=== PATIENT | male | born 1975 | race Caucasian/White ===

== ENCOUNTER 2016-04-11 09:34 | Emergency (ER) | payer BC ==
[~2016-04-11] VITALS: Ht 177.8 cm; Wt 67.0 kg
[~2016-04-11 09:34] MED LIST: CYCL-36 PO
[2016-04-11 09:37] VITALS: BP 110/80; PULSE 75; RESP 15; TEMP 97.9; O2SAT 100
[2016-04-11] MEDS ORDERED: CYCL1TAB29 PO (10:00)
--- NOTE | 2016-04-11 10:00 | PD ---
HPI Chief Complaint: Back/ Neck Pain or Injury Time Seen by Provider: 09:49 Travel History International Travel<30 days: No Contact w/Intl Traveler<30days: No Traveled to known affect area: No History of Present Illness HPI This 40-year-old male is complaining of right flank pain. Having the pain for a couple of days. He did some heavy lifting couple of days ago he was lifting a lot of sheet. Since then he's been having pain right flank area with certain movements. He does not have any dysuria. There is been no fever or chills. He gets a pinching when he moves in a certain way. He has had similar pain in the past. 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) Endocrine: No Gastrointestinal Disorders: No Genitourinary: No Immune Disorder: No Implanted Vascular Access Dvce: No Musculoskeletal: No Neurologic: Yes (severe head injury as a child) Psychiatric: No Reproductive: No Respiratory: No Immunizations Current: Yes Radiation Therapy: No Seizures: Yes (CURRENTLY NOT MEDICATED.) Past Surgical History AICD: No Pacemaker: No Other Surgery: Yes (HERNIA REPAIR CHILD) Social History Alcohol Use: Yes (occ) Tobacco Use: Yes (1/2 ppd) Substance Use: No Allergies-Medications (Allergen,Severity, Reaction): Coded Allergies: *MDRO Multi-Drug Resistant Organism (Verified Adverse Reaction, Unknown, ) MRSA PCR Screen positive 12/06/14. Reported Meds & Prescriptions Reported Meds & Active Scripts Active No Active Prescriptions or Reported Medications Review of Systems General / Constitutional: No: Fever, Chills Eyes: No: Diploplia HENT: No: Headaches Cardiovascular: No: Chest Pain or Discomfort, Palpitations Respiratory: No: Cough, Shortness of Breath Gastrointestinal: No: Vomiting, Diarrhea Genitourinary: Positive: Flank Pain Musculoskeletal: Positive: Pain Skin: No Rash, No Itching Physical Exam Narrative GENERAL: [-] SKIN: Warm and dry. HEAD: Atraumatic. Normocephalic. EYES: Pupils equal and round. No scleral icterus. No injection or drainage. ENT: No nasal bleeding or discharge. Mucous membranes pink and moist. NECK: Trachea midline. No JVD. MUSCULOSKELETAL: No obvious deformities. No clubbing. No cyanosis. No edema. Ears some tenderness of the lower back and also the right CVA area. He has pain with certain movements. Sensation is intact. He was good strength in plantar and dorsiflexion NEUROLOGICAL: Awake and alert. No obvious cranial nerve deficits. Motor grossly within normal limits. Normal speech. PSYCHIATRIC: Appropriate mood and affect; insight and judgment normal. Data Data Last Documented VS Vital Signs Date Time Temp Pulse Resp B/P Pulse Ox O2 Delivery O2 Flow Rate FiO2 04/11/16 09:37 97.9 75 15 110/80 100 MDM Medical Decision Making Medical Screen Exam Complete: Yes Emergency Medical Condition: Yes Medical Record Reviewed: Yes Differential Diagnosis Differential includes musculoskeletal pain, lumbar strain, Narrative Course This pain clearly appears to be musculoskeletal in origin as it is aggravated by certain movements. He was here in the past for similar pain and got some relief with Flexeril. I will prescribe Flexeril again Diagnosis Primary Impression: Muscle strain of right upper back Qualified Code: S29.012A - Muscle strain of right upper back, initial encounter Scripts Cyclobenzaprine (Flexeril)10 Mg Tab10 Mg PO TID #30 TAB Ref 0 Prov:Wyatt Goldberg MD 04/11/16 Disposition: 01 DISCHARGE HOME Condition: Stable Wyatt Goldberg MD Apr 11, 2016 10:00
== END 2016-04-11 10:06 | disposition home or self-care (01) ==
LOC: PHED 09:34
DX: S29.012A Strain of muscle and tendon of back wall of thorax, initial encounter (principal); X50.0XXA Overexertion from strenuous movement or load, initial encounter; Y93.89 Activity, other specified; Y92.89 Other specified places as the place of occurrence of the external cause; Y99.8 Other external cause status
CPT/HCPCS: 99283

== ENCOUNTER 2016-08-07 22:00 | Emergency (ER) | payer SELFPAY ==
[~2016-08-07] VITALS: Ht 170.2 cm; Wt 65.0 kg
[~2016-08-07 22:00] MED LIST changes: -CYCL-36 PO; +CYCL1TAB29 PO
[2016-08-07 22:05] VITALS: BP 117/80; PULSE 93; RESP 18; TEMP 97.7; O2SAT 96
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
[2016-08-07 22:26] LABS: AUTOMATED NEUTROPHIL # 5.7 TH/MM3 (1.8-7.7); BASOPHIL # 0.1 TH/MM3 (0-0.2); BASOPHIL % 1.1 % (0.0-2.0); EOSINOPHIL # 0.2 TH/MM3 (0-0.4); EOSINOPHIL % 1.9 % (0.0-4.0); HEMATOCRIT 45.1 % (39.0-51.0); HEMO FLAGS DIFF FINAL; LYMPH % 25.4 % (9.0-44.0); LYMPHOCYTE # 2.3 TH/MM3 (1.0-4.8); MEAN CELL VOLUME 87.5 FL (80.0-100.0); MEAN CORPUSCULAR HEMOGLOBIN 31.4 PG (27.0-34.0); MEAN CORPUSCULAR HGB CONC 35.9 % (32.0-36.0); MONO % 7.8 % (0.0-8.0); NEUT % 63.8 % (16.0-70.0); PLATELET COUNT 179 TH/MM3 (150-450); RED BLOOD COUNT 5.16 MIL/MM3 (4.50-5.90); RED CELL DISTRIBUTION WIDTH 12.9 % (11.6-17.2)
--- NOTE | 2016-08-07 22:47 | RADRPT ---
EXAM DATE/TIME: 08/07/2016 22:18 [facility] COMPARISON: CHEST SINGLE AP, December 05, 2014, 17:19. INDICATIONS : Syncope. Altered mental status. MEDICAL HISTORY : None. SURGICAL HISTORY : None. ENCOUNTER: Initial ACUITY: 1 day PAIN SCORE: 2/10 LOCATION: Bilateral chest FINDINGS: A single view of the chest demonstrates the lungs to be symmetrically aerated without evidence of mas s, infiltrate or effusion. Minimal basilar atelectasis. The cardiomediastinal contours are unremarka ble. Osseous structures are intact. CONCLUSION: 1. Minimal basilar dependent atelectasis. Grayson Morris MD on August 07, 2016 at 22:45 Board Certified Radiologist. This report was verified electronically.
[2016-08-07 22:56] LABS: ANION GAP 11 MEQ/L (5-15); BICARBONATE 23.3 MEQ/L (21.0-32.0); BLOOD UREA NITROGEN 9 MG/DL (7-18); CHLORIDE 104 MEQ/L (98-107); GLOMERULAR FILTRATION RATE 93 ML/MIN (>89); MAGNESIUM 2.4 MG/DL (1.5-2.5); POTASSIUM 3.5 MEQ/L (3.5-5.1); SODIUM (NA) 138 MEQ/L (136-145)
--- NOTE | 2016-08-07 23:01 | RADRPT ---
EXAM DATE/TIME: 08/07/2016 22:34 [facility] COMPARISON: No previous studies available for comparison. INDICATIONS : Trauma, fell out of tree and hit head. RADIATION DOSE: 31.86 CTDIvol (mGy) MEDICAL HISTORY : Seizures. Substance abuse. SURGICAL HISTORY : None. ENCOUNTER: Initial ACUITY: 1 day PAIN SCALE: 8/10 LOCATION: cranial TECHNIQUE: Multiple contiguous axial images were obtained of the head. Using automated exposure control and adj ustment of the mA and/or kV according to patient size, radiation dose was kept as low as reasonably a chievable to obtain optimal diagnostic quality images. FINDINGS: CEREBRUM: The ventricles are normal for age. No evidence of midline shift, mass lesion, hemorrhage or acute in farction. No extra-axial fluid collections are seen. POSTERIOR FOSSA: The cerebellum and brainstem are intact. The 4th ventricle is midline. The cerebellopontine angle i s unremarkable. EXTRACRANIAL: The visualized portion of the orbits is intact. SKULL: The calvaria is intact. No evidence of skull fracture. CONCLUSION: Normal examination for a patient of this age. Grayson Morris MD on August 07, 2016 at 22:57 Board Certified Radiologist. This report was verified electronically.
--- NOTE | 2016-08-07 23:07 | RADRPT ---
EXAM DATE/TIME: 08/07/2016 22:34 [facility] COMPARISON: CT CERVICAL SPINE W/O CONTRAST, December 04, 2014, 3:07. INDICATIONS : Trauma, fell out of tree and hit head. RADIATION DOSE: 20.69 CTDIvol (mGy) MEDICAL HISTORY : Seizures. Substance abuse. SURGICAL HISTORY : None. ENCOUNTER: Initial ACUITY: 1 day PAIN SCALE: 3/10 LOCATION: neck TECHNIQUE: Volumetric scanning of the cervical spine was performed. Multiplanar reconstructions in the sagittal, coronal and oblique axial planes were performed. Using automated exposure control and adjustment o f the mA and/or kV according to patient size, radiation dose was kept as low as reasonably achievable to obtain optimal diagnostic quality images. FINDINGS: VERTEBRAE: Normal vertebral body height. No compression fracture. Minimal degenerative change C5-C7. ALIGNMENT: No evidence of subluxation. C2-C3: The bony spinal canal is normal in size. No evidence of disc bulge or herniation. The neural forami na are bilaterally patent. C3-C4: The bony spinal canal is normal in size. No evidence of disc bulge or herniation. The neural forami na are bilaterally patent. C4-C5: The bony spinal canal is normal in size. No evidence of disc bulge or herniation. The neural forami na are bilaterally patent. C5-C6: The bony spinal canal is normal in size. No evidence of disc bulge or herniation. The neural forami na are bilaterally patent. C6-C7: The bony spinal canal is normal in size. No evidence of disc bulge or herniation. The neural forami na are bilaterally patent. C7-T1: The bony spinal canal is normal in size. No evidence of disc bulge or herniation. The neural forami na are bilaterally patent. CONCLUSION: 1. No fracture or subluxation. 2. Minimal degenerative changes C5-C7. Douglas Paulson MD on August 07, 2016 at 23:03 Board Certified Radiologist. This report was verified electronically.
[2016-08-07 23:09] LABS: CREATINE KINASE 1325 U/L (39-308)
[2016-08-07] MEDS ORDERED: LORazepam 2 MG/ML VIAL IV PUSH ONE (23:15)
[2016-08-07 23:23] LABS: CKMB 12.7 NG/ML (0.5-3.6)
[2016-08-08] MEDS ORDERED: SODIUM CHLOR 0.9% 1000 ML INJ 1,000 ML IV SCH (00:30)
[2016-08-08 01:04] VITALS: BP 102/69; PULSE 76; RESP 16; O2SAT 98
--- NOTE | 2016-08-08 03:15 | PD ---
Data Data Last Documented VS Vital Signs Date Time Temp Pulse Resp B/P Pulse Ox O2 Delivery O2 Flow Rate FiO2 08/08/16 01:04 76 16 102/69 98 08/07/16 22:10 Room Air 08/07/16 22:05 97.7 Orders Electrocardiogram (08/07/16 22:07) Complete Blood Count With Diff (08/07/16 22:07) Basic Metabolic Panel (Bmp) (08/07/16 22:07) Ckmb (Isoenzyme) Profile (08/07/16 22:07) Troponin I (08/07/16 22:07) Magnesium (Mg) (08/07/16 22:07) Ct Brain W/O Iv Contrast(Rout) (08/07/16 22:07) Alcohol (Ethanol) (08/07/16 22:07) Ct Cerv Spine W/O Contrast (08/07/16 ) Chest, Single Ap (08/07/16 ) Lorazepam Inj (Ativan Inj) (08/07/16 23:15) CKMB (08/07/16 22:15) CKMB% (08/07/16 22:15) Sodium Chlor 0.9% 1000 Ml Inj (Ns 1000 M (08/08/16 00:30) Troponin I (08/08/16 00:28) Restraints Non-Violent DAVID.Q3H (08/08/16 00:29) Labs Laboratory Tests Test 08/07/16 08/08/16 22:15 00:50 White Blood Count 9.0 TH/MM3 Red Blood Count 5.16 MIL/MM3 Hemoglobin 16.2 GM/DL Hematocrit 45.1 % Mean Corpuscular Volume 87.5 FL Mean Corpuscular Hemoglobin 31.4 PG Mean Corpuscular Hemoglobin 35.9 % Concent Red Cell Distribution Width 12.9 % Platelet Count 179 TH/MM3 Mean Platelet Volume 7.7 FL Neutrophils (%) (Auto) 63.8 % Lymphocytes (%) (Auto) 25.4 % Monocytes (%) (Auto) 7.8 % Eosinophils (%) (Auto) 1.9 % Basophils (%) (Auto) 1.1 % Neutrophils # (Auto) 5.7 TH/MM3 Lymphocytes # (Auto) 2.3 TH/MM3 Monocytes # (Auto) 0.7 TH/MM3 Eosinophils # (Auto) 0.2 TH/MM3 Basophils # (Auto) 0.1 TH/MM3 CBC Comment DIFF FINAL Differential Comment Sodium Level 138 MEQ/L Potassium Level 3.5 MEQ/L Chloride Level 104 MEQ/L Carbon Dioxide Level 23.3 MEQ/L Anion Gap 11 MEQ/L Blood Urea Nitrogen 9 MG/DL Creatinine 0.90 MG/DL Estimat Glomerular Filtration 93 ML/MIN Rate Random Glucose 78 MG/DL Calcium Level 8.7 MG/DL Magnesium Level 2.4 MG/DL Total Creatine Kinase 1325 U/L Creatine Kinase MB 12.7 NG/ML Creatine Kinase MB % 1.0 % Troponin I LESS THAN 0.02 LESS THAN 0.02 NG/ML NG/ML Ethyl Alcohol Level 171 MG/DL MDM Supervised Visit with IDALIA: Yes Narrative Course The history, exam, and medical decision-making in the associated midlevel provider note were completed with my assistance. I reviewed and agree with the findings presented. I attest that I had a [id number] encounter with the patient on the same day, and personally performed and documented my assessment and findings in the medical record. *My assessment and Findings: This is a 40-year-old male who presents to the emergency department having been under arrest when he developed chest discomfort. He also reports that he fell earlier today and hit his head. Labs were obtained. CT imaging was obtained which was reassuring. Patient's troponin was normal 2. His CK was elevated likely in the setting of dehydration. He is able to tolerate oral liquids I don't think he requires admission for this. He was given a liter of IV fluids in the emergency department and will be discharged in police custody. Patient Instructions: General Instructions Departure Forms: Tests/Procedures Disposition: [address] LAW ENFORCEMNT Norma Ordoñez MD August 08, 2016 03:15
--- NOTE | 2016-08-08 10:38 | EKG ---
Date Performed: 08/07/2016 Time Performed: 22:18:43 PTAGE: 40 years EKG: Sinus rhythm POSSIBLE RIGHT VENTRICULAR CONDUCTION DELAY BORDERLINE ECG PREVIOUS TRACING : 12/06/2015 10.41 DOCTOR: Yaquelin Hughes Interpretating Date/Time 08/08/2016 10:38:22
== END 2016-08-08 03:31 ==
LOC: NEPE 22:00
DX: R07.89 Other chest pain (principal); E86.0 Dehydration; R06.02 Shortness of breath; M54.2 Cervicalgia; S09.90XA Unspecified injury of head, initial encounter; F17.210 Nicotine dependence, cigarettes, uncomplicated; Y08.89XA Assault by other specified means, initial encounter; R94.31 Abnormal electrocardiogram [ECG] [EKG]; W14.XXXA Fall from tree, initial encounter; Y93.H9 Activity, other involving exterior property and land maintenance, building and construction; Y99.0 Civilian activity done for income or pay
CPT/HCPCS: 70450; 71010; 72125; 80048; 80307; 82550; 82552; 83735; 84484; 85025; 93005; 99285; J7030

== ENCOUNTER 2016-09-19 18:05 | Emergency (ER) | payer SELFPAY ==
[2016-09-19 18:05] VITALS: BP 120/75; PULSE 90; RESP 16; TEMP 97.6; O2SAT 95
--- NOTE | 2016-09-19 18:12 | PD ---
HPI Chief Complaint: chest pain Time Seen by Provider: 18:08 Travel History International Travel<30 days: No Contact w/Intl Traveler<30days: No Traveled to known affect area: No History of Present Illness HPI The patient is a 40-year-old male who presents emergency department for chest pain. The patient states his father today and [place] the beach, [place], when he fell asleep. The patient awakened and realized that his friends had left him. The patient was subsequently walking down the street and felt slightly dizzy. The patient states he has some right sided chest pain which is, sharp and stabbing, car stopped and subsequent called EMS. The patient does admit to drinking approximately 6 by my beers earlier tonight. He states his chest pain has resolved. He denies any history of coronary artery disease, hypertension, hyperlipidemia, diabetes, significant family medical history for early heart disease. His symptoms have currently resolved. He denies any accompanying nausea, vomiting, shortness breath, or diaphoresis. 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) Endocrine: No Gastrointestinal Disorders: No Genitourinary: No Immune Disorder: No Implanted Vascular Access Dvce: No Musculoskeletal: No Neurologic: Yes (severe head injury as a child) Psychiatric: No Reproductive: No Respiratory: No Immunizations Current: Yes Radiation Therapy: No Seizures: Yes (CURRENTLY NOT MEDICATED.) Past Surgical History AICD: No Neurologic Surgery: Yes (PT STATES HE HAS HAD HEAD ALYSE) Pacemaker: No Other Surgery: Yes (HERNIA REPAIR CHILD) Social History Alcohol Use: Yes (occ) Tobacco Use: Yes (1/2 ppd) Substance Use: No Allergies-Medications (Allergen,Severity, Reaction): Coded Allergies: *MDRO Multi-Drug Resistant Organism (Verified Adverse Reaction, Unknown, ) MRSA PCR Screen positive 12/06/14. Reported Meds & Prescriptions Reported Meds & Active Scripts Active Flexeril (Cyclobenzaprine HCl) 10 Mg Tab 10 Mg PO TID Review of Systems Except as stated in HPI: all other systems reviewed are Neg General / Constitutional: No: Fever HENT: Positive: Lightheadedness Cardiovascular: Positive: Chest Pain or Discomfort, No: Diaphoresis Respiratory: No: Shortness of Breath Gastrointestinal: No: Nausea, Vomiting, Abdominal Pain Musculoskeletal: No: Edema Neurologic: Positive: Dizziness, No: Change in Mentation Physical Exam Narrative GENERAL: Awake, alert, nontoxic-appearing 40-year-old male who appears his stated age is in no acute respiratory distress. SKIN: Focused skin assessment warm/dry. Mild sunburn to the upper extremities noted. HEAD: Atraumatic. Normocephalic. EYES: Pupils equal and round. Mild injection bilaterally. ENT: No nasal bleeding or discharge. Breath smells of alcohol. NECK: Trachea midline. No JVD. CARDIOVASCULAR: Regular rate and rhythm. No murmur appreciated. Chest wall is nontender to palpation. RESPIRATORY: No accessory muscle use. Clear to auscultation. Breath sounds equal bilaterally. GASTROINTESTINAL: Abdomen soft, non-tender, nondistended. No rebound tenderness. MUSCULOSKELETAL: No obvious deformities. No clubbing. No cyanosis. No edema. NEUROLOGICAL: Awake and alert. No obvious cranial nerve deficits. Motor grossly within normal limits. Normal speech. Nonfocal. Oriented 3. Follows commands without difficulty. PSYCHIATRIC: Appropriate mood and affect; insight and judgment normal. Data Data Last Documented VS Vital Signs Date Time Temp Pulse Resp B/P Pulse Ox O2 Delivery O2 Flow Rate FiO2 09/19/16 18:05 97.6 90 16 120/75 95 Orders Electrocardiogram (09/19/16 18:08) Basic Metabolic Panel (Bmp) (09/19/16 18:08) Ckmb (Isoenzyme) Profile (09/19/16 18:08) Complete Blood Count With Diff (09/19/16 18:08) Magnesium (Mg) (09/19/16 18:08) Prothrombin Time / Inr (Pt) (09/19/16 18:08) Act Partial Throm Time (Ptt) (09/19/16 18:08) Troponin I (09/19/16 18:08) Ecg Monitoring (09/19/16 18:08) Bilateral Bp Monitoring (09/19/16 18:08) Iv Access Insert/Monitor (09/19/16 18:08) Oximetry (09/19/16 18:08) Oxygen Administration (09/19/16 18:08) Aspirin Chew (Aspirin Chew) (09/19/16 18:15) Sodium Chloride 0.9% Flush (Ns Flush) (09/19/16 18:15) Sodium Chlorid 0.9% 500 Ml Inj (Ns 500 M (09/19/16 18:15) Alcohol (Ethanol) (09/19/16 18:08) CKMB (09/19/16 18:10) CKMB% (09/19/16 18:10) Labs Laboratory Tests Test 09/19/16 18:10 White Blood Count 8.7 TH/MM3 Red Blood Count 5.41 MIL/MM3 Hemoglobin 16.4 GM/DL Hematocrit 47.2 % Mean Corpuscular Volume 87.2 FL Mean Corpuscular Hemoglobin 30.2 PG Mean Corpuscular Hemoglobin 34.6 % Concent Red Cell Distribution Width 12.9 % Platelet Count 167 TH/MM3 Mean Platelet Volume 7.2 FL Neutrophils (%) (Auto) 66.0 % Lymphocytes (%) (Auto) 25.5 % Monocytes (%) (Auto) 6.6 % Eosinophils (%) (Auto) 1.0 % Basophils (%) (Auto) 0.9 % Neutrophils # (Auto) 5.7 TH/MM3 Lymphocytes # (Auto) 2.2 TH/MM3 Monocytes # (Auto) 0.6 TH/MM3 Eosinophils # (Auto) 0.1 TH/MM3 Basophils # (Auto) 0.1 TH/MM3 CBC Comment DIFF FINAL Differential Comment Sodium Level 144 MEQ/L Potassium Level 3.5 MEQ/L Chloride Level 108 MEQ/L Carbon Dioxide Level 21.8 MEQ/L Anion Gap 14 MEQ/L Blood Urea Nitrogen 14 MG/DL Creatinine 0.97 MG/DL Estimat Glomerular Filtration 86 ML/MIN Rate Random Glucose 80 MG/DL Calcium Level 7.8 MG/DL Magnesium Level 2.1 MG/DL Total Creatine Kinase 618 U/L Troponin I LESS THAN 0.02 NG/ML Ethyl Alcohol Level 207 MG/DL [facility] Medical Decision Making Medical Screen Exam Complete: Yes Emergency Medical Condition: Yes Medical Record Reviewed: Yes Interpretation(s) EKG reveals normal sinus rhythm with a rate 85. No ischemic changes or ectopy noted. Laboratory Tests Test 09/19/16 18:10 White Blood Count 8.7 TH/MM3 Red Blood Count 5.41 MIL/MM3 Hemoglobin 16.4 GM/DL Hematocrit 47.2 % Mean Corpuscular Volume 87.2 FL Mean Corpuscular Hemoglobin 30.2 PG Mean Corpuscular Hemoglobin 34.6 % Concent Red Cell Distribution Width 12.9 % Platelet Count 167 TH/MM3 Mean Platelet Volume 7.2 FL Neutrophils (%) (Auto) 66.0 % Lymphocytes (%) (Auto) 25.5 % Monocytes (%) (Auto) 6.6 % Eosinophils (%) (Auto) 1.0 % Basophils (%) (Auto) 0.9 % Neutrophils # (Auto) 5.7 TH/MM3 Lymphocytes # (Auto) 2.2 TH/MM3 Monocytes # (Auto) 0.6 TH/MM3 Eosinophils # (Auto) 0.1 TH/MM3 Basophils # (Auto) 0.1 TH/MM3 CBC Comment DIFF FINAL Differential Comment Sodium Level 144 MEQ/L Potassium Level 3.5 MEQ/L Chloride Level 108 MEQ/L Carbon Dioxide Level 21.8 MEQ/L Anion Gap 14 MEQ/L Blood Urea Nitrogen 14 MG/DL Creatinine 0.97 MG/DL Estimat Glomerular Filtration 86 ML/MIN Rate Random Glucose 80 MG/DL Calcium Level 7.8 MG/DL Magnesium Level 2.1 MG/DL Total Creatine Kinase 618 U/L Troponin I LESS THAN 0.02 NG/ML Ethyl Alcohol Level 207 MG/DL Differential Diagnosis Differential diagnoses includes alcohol intoxication, acute coronary syndrome, pleurisy, pneumonia, pulmonary embolism, GERD, esophageal spasm, atypical chest pain. Narrative Course IV was established, labs are drawn and sent, and the patient was placed on cardiac telemetry monitoring and continuous pulse oximetry monitoring. EKG was ordered and interpreted. The patient was administered aspirin 162 mg orally. The patient's symptoms are very atypical, is low risk, and his symptoms had completely resolved. EKG was unremarkable no ischemic changes noted. The patient's troponin is negative. Alcohol level is elevated at 207. Patient has no risk factors and atypical symptoms. He'll be discharged home and he has a safe ride and disposition home. He is advised to follow-up with his primary physician and return if symptoms worsen or progress. Diagnosis Primary Impression: Atypical chest pain Additional Impression: Alcohol abuse Patient Instructions: General Instructions Additional Instructions: Decrease alcohol intake. Follow-up with your primary physician. Return if symptoms worsen or progress. Disposition: 01 DISCHARGE HOME Condition: Stable Michael Bradford MD Sep 19, 2016 18:12
[2016-09-19] MEDS ORDERED: SODIUM CHLORIDE 0.9% FLUSH 10 ML FLUSH IVF PRN (18:15)
[2016-09-19] MEDS ORDERED: ASPIRIN 81 MG CHEW TAB PO ONE (18:15)
[2016-09-19] MEDS ORDERED: SODIUM CHLORID 0.9% 500 ML INJ 500 ML IV ONE (18:15)
[2016-09-19 18:35] LABS: CHLORIDE 108 MEQ/L (98-107); POTASSIUM 3.5 MEQ/L (3.5-5.1); SODIUM (NA) 144 MEQ/L (136-145)
[2016-09-19 18:36] LABS: AUTOMATED NEUTROPHIL # 5.7 TH/MM3 (1.8-7.7); BASOPHIL # 0.1 TH/MM3 (0-0.2); BASOPHIL % 0.9 % (0.0-2.0); EOSINOPHIL # 0.1 TH/MM3 (0-0.4); HEMATOCRIT 47.2 % (39.0-51.0); HEMO FLAGS DIFF FINAL; LYMPH % 25.5 % (9.0-44.0); LYMPHOCYTE # 2.2 TH/MM3 (1.0-4.8); MEAN CELL VOLUME 87.2 FL (80.0-100.0); MEAN CORPUSCULAR HEMOGLOBIN 30.2 PG (27.0-34.0); MEAN CORPUSCULAR HGB CONC 34.6 % (32.0-36.0); MONO % 6.6 % (0.0-8.0); PLATELET COUNT 167 TH/MM3 (150-450); RED BLOOD COUNT 5.41 MIL/MM3 (4.50-5.90); RED CELL DISTRIBUTION WIDTH 12.9 % (11.6-17.2); WHITE BLOOD COUNT 8.7 TH/MM3 (4.0-11.0)
[2016-09-19 18:39] LABS: ANION GAP 14 MEQ/L (5-15); BICARBONATE 21.8 MEQ/L (21.0-32.0); BLOOD UREA NITROGEN 14 MG/DL (7-18); MAGNESIUM 2.1 MG/DL (1.5-2.5)
[2016-09-19 18:42] LABS: GLOMERULAR FILTRATION RATE 86 ML/MIN (>89)
[2016-09-19 18:45] LABS: CREATINE KINASE 618 U/L (39-308)
[2016-09-19 18:57] LABS: CKMB 5.4 NG/ML (0.5-3.6)
[2016-09-19 19:16] VITALS: BP 124/76
[2016-09-19 19:31] LABS: APTT (PATIENT) 25.7 SEC (24.3-30.1); PROTHROMBIN TIME - PATIENT 10.5 SEC (9.8-11.6)
--- NOTE | 2016-09-20 14:17 | EKG ---
Date Performed: 09/19/2016 Time Performed: 18:10:55 PTAGE: 40 years EKG: Sinus rhythm POSSIBLE RIGHT VENTRICULAR CONDUCTION DELAY Since previous tracing, no significant change noted [facility] ECG PREVIOUS TRACING : 08/07/2016 22.18 DOCTOR: John France Interpretating Date/Time 09/20/2016 14:14:57
== END 2016-09-19 19:19 | disposition home or self-care (01) ==
LOC: PHED 18:05
DX: R07.89 Other chest pain (principal); F17.200 Nicotine dependence, unspecified, uncomplicated; F10.10 Alcohol abuse, uncomplicated; Y90.7 Blood alcohol level of 200-239 mg/100 ml
CPT/HCPCS: 80048; 80307; 82550; 82552; 83735; 84484; 85025; 85610; 85730; 93005; 99284; J7040

== ENCOUNTER 2016-09-26 16:45 | Emergency (ER) | payer SELFPAY ==
[~2016-09-26] VITALS: Ht 177.8 cm; Wt 65.0 kg
[2016-09-26 16:45] VITALS: BP 120/70; PULSE 84; RESP 16; TEMP 98; O2SAT 96
--- NOTE | 2016-09-26 16:53 | PD ---
HPI Chief Complaint: Chest Pain Time Seen by Provider: 16:49 Travel History International Travel<30 days: No Contact w/Intl Traveler<30days: No History of Present Illness HPI The patient is 40 years old. He arrives to the ER after he was arrested presumably for drunk driving however due to noncompliance with the breathalyzer evaluation it is unknown. The patient told me he drank 2 cans of beer today. He complains of pain in the chest in the region of the xiphoid process. He states it has been present for about 8 hours. He's had no shortness of breath. He was seen and evaluated here for a similar complaint about 6 days ago. His workup was normal at that time. We have 7 troponins on record in all are less than 0.02. 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) Endocrine: No Gastrointestinal Disorders: No Genitourinary: No Immune Disorder: No Implanted Vascular Access Dvce: No Musculoskeletal: No Neurologic: Yes (severe head injury as a child) Psychiatric: No Reproductive: No Respiratory: No Immunizations Current: Yes Radiation Therapy: No Seizures: Yes (CURRENTLY NOT MEDICATED.) Past Surgical History AICD: No Neurologic Surgery: Yes (PT STATES HE HAS HAD HEAD ALYSE) Pacemaker: No Other Surgery: Yes (HERNIA REPAIR CHILD) Social History Alcohol Use: Yes (occ) Tobacco Use: Yes (1 PPD) Substance Use: No Allergies-Medications (Allergen,Severity, Reaction): Coded Allergies: *MDRO Multi-Drug Resistant Organism (Verified Adverse Reaction, Unknown, ) MRSA PCR Screen positive 12/06/14. Reported Meds & Prescriptions Reported Meds & Active Scripts Active Flexeril (Cyclobenzaprine HCl) 10 Mg Tab 10 Mg PO TID Review of Systems Except as stated in HPI: all other systems reviewed are Neg General / Constitutional: No: Fever, Chills Cardiovascular: Positive: Chest Pain or Discomfort Physical Exam Narrative GENERAL: 40-year-old female well-nourished well-developed SKIN: Focused skin assessment warm/dry. HEAD: Atraumatic. Normocephalic. EYES: Pupils equal and round. No scleral icterus. No injection or drainage. ENT: No nasal bleeding or discharge. Mucous membranes pink and moist. NECK: Trachea midline. No JVD. CARDIOVASCULAR: Regular rate and rhythm. No murmur appreciated. Tenderness to palpation overlying the region of the xiphoid process. RESPIRATORY: No accessory muscle use. Clear to auscultation. Breath sounds equal bilaterally. GASTROINTESTINAL: Abdomen soft, non-tender, nondistended. Hepatic and splenic margins not palpable. MUSCULOSKELETAL: No obvious deformities. No clubbing. No cyanosis. No edema. NEUROLOGICAL: Awake and alert. No obvious cranial nerve deficits. Motor grossly within normal limits. Normal speech. PSYCHIATRIC: Appropriate mood and affect; insight and judgment normal. MDM Medical Decision Making Medical Screen Exam Complete: Yes Emergency Medical Condition: Yes Differential Diagnosis NSTEMI, unstable angina, coronary vasospasm, PE, PTX, aortic dissection, pericarditis, myocarditis, endocarditis, PNA, esophageal disease, aneurysm, musculoskeletal etiologies, anxiety, cocaine/sympathomimetic abuse Narrative Course EKG reveals sinus rhythm at a rate of 84 normal axis, no evidence ischemia Given that the patient's pain started right after he was arrested in this is his third visit for chest pain and less than 2 months and he has 7 undetectable troponins on record and are normal EKG is considered reasonable for the patient to follow up with his primary care provider for outpatient provocative study. Certainly a musculoskeletal etiology is considered more likely probabilistically. Diagnosis Primary Impression: Atypical chest pain Additional Impression: Alcohol ingestion Referrals: Primary Care Physician 2 days Additional Instructions: You have a choice when it comes to health care, and we are glad that you chose [facility]. Hopefully, we have met your expectations on today's visit. You are welcome to return to [facility] at any time, as we are committed to meeting the health care needs of our community. Med/Other Pt SpecificInfo: No Change to Meds Disposition: [address] LAW ENFORCEMNT Condition: David Foley MD Sep 26, 2016 16:53
[2016-09-26] MEDS ORDERED: ANTA500T PO (17:03)
[2016-09-26] MEDS ORDERED: METHY5 PO (17:03)
[2016-09-26] MEDS ORDERED: DILA30CA PO (17:03)
[2016-09-26 17:17] VITALS: BP 112/83
--- NOTE | 2016-09-28 08:35 | EKG ---
Date Performed: 09/26/2016 Time Performed: 16:47:17 PTAGE: 40 years EKG: Sinus rhythm POSSIBLE RIGHT VENTRICULAR CONDUCTION DELAY BORDERLINE ECG INTERPRETATION BASED ON A DEFAULT AGE OF 40 YEARS NO PREVIOUS TRACING DOCTOR: Yaquelin Hughes Interpretating Date/Time 09/28/2016 08:34:14
== END 2016-09-26 17:56 ==
LOC: PHED 16:45
DX: R07.89 Other chest pain (principal)
CPT/HCPCS: 93005

== ENCOUNTER 2016-11-08 19:21 | Emergency (ER) | payer SELFPAY ==
[~2016-11-08] VITALS: Ht 177.8 cm; Wt 65.7 kg
[~2016-11-08 19:21] MED LIST changes: +ANTA500T PO; +DILA30CA PO; +METHY5 PO
[2016-11-08 19:30] VITALS: BP 117/63; PULSE 95; RESP 16; TEMP 98.1; O2SAT 96
[2016-11-08] MEDS ORDERED: SODIUM CHLORIDE 0.9% FLUSH 10 ML FLUSH IVF PRN (19:45)
--- NOTE | 2016-11-08 19:46 | PD ---
HPI Chief Complaint: dizziness Time Seen by Provider: 19:40 Travel History International Travel<30 days: No Contact w/Intl Traveler<30days: No Traveled to known affect area: No History of Present Illness HPI 40-year-old male presents to the emergency department for complaint of dizziness. Patient reports 1 week ago while hanging sheet rock overhead a large piece of sheet rock fell and hit him on the head. Patient states that he thinks he had brief 2 seconds loss of consciousness. Patient's had dizziness subsequently. Patient denies any gait disturbance. Patient denies any neck pain. Patient denies any upper extremity or lower extremity distinct weakness. Patient does not report any chest pain palpitations shortness of breath diaphoresis near-syncope or syncope. Patient has a scalp soft tissue swelling that has been there for a very long time but is concerned because reportedly it seems a bit larger. There is no redness or tenderness to the site. Patient's had no fever or chills. 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) Endocrine: No Gastrointestinal Disorders: No Genitourinary: No Immune Disorder: No Implanted Vascular Access Dvce: No Musculoskeletal: No Neurologic: Yes (severe head injury as a child) Psychiatric: No Reproductive: No Respiratory: No Immunizations Current: Yes Radiation Therapy: No Seizures: Yes Past Surgical History AICD: No Neurologic Surgery: Yes (PT STATES HE HAS HAD HEAD ALYSE) Pacemaker: No Other Surgery: Yes (HERNIA REPAIR CHILD) Social History Alcohol Use: Yes (occ) Tobacco Use: Yes (1 PPD) Substance Use: No Allergies-Medications (Allergen,Severity, Reaction): Coded Allergies: *MDRO Multi-Drug Resistant Organism (Verified Adverse Reaction, Unknown, ) MRSA PCR Screen positive 12/06/14. Reported Meds & Prescriptions Reported Meds & Active Scripts Active Flexeril (Cyclobenzaprine HCl) 10 Mg Tab 10 Mg PO TID Reported Dilantin (Phenytoin Extended) 30 Mg Cap Unknown Dose PO TID Antabuse (Disulfiram) 500 Mg Tab 500 Mg PO BID Ritalin IR (Methylphenidate HCl) 5 Mg Tab Unknown Dose PO BIDAC Narrative Medication Patient reports taking no prescription medications for 2 years Review of Systems Except as stated in HPI: all other systems reviewed are Neg General / Constitutional: No: Fever, Chills Eyes: No: Visual changes HENT: Positive: Lightheadedness, No: Headaches, Vertigo, Neck Stiffness, Neck Pain Cardiovascular: No: Chest Pain or Discomfort Respiratory: No: Shortness of Breath Gastrointestinal: No: Nausea, Vomiting, Abdominal Pain Genitourinary: No: Flank Pain Musculoskeletal: No: Myalgias, Arthralgias Skin: No Rash Neurologic: Positive: Dizziness, No: Weakness, Syncope, Focal Abnormalities, Coordination Problem, Ataxia, Headache, Change in Mentation, Paresthesia, Seizures, Sensory Disturbance Psychiatric: No: Anxiety Hematologic/Lymphatic: No: Lymph Node Enlargement Physical Exam Narrative GENERAL: Well-developed well-nourished male in no acute distress no respiratory distress SKIN: Warm and dry. HEAD: Atraumatic. Normocephalic. Small non-fixed olive shaped soft tissue cyst nonfluctuant nontender no induration no fluctuance. EYES: Pupils equal and round. Extraocular muscles intact. No scleral icterus. No injection or drainage. ENT: No nasal bleeding or discharge. Mucous membranes pink and moist. NECK: Trachea midline. No JVD. Supple no midline tenderness to direct palpation along the cervical spine no bony step-off. CARDIOVASCULAR: Regular rate and rhythm. RESPIRATORY: No accessory muscle use. Clear to auscultation. Breath sounds equal bilaterally. GASTROINTESTINAL: Abdomen soft, non-tender, nondistended. Hepatic and splenic margins not palpable. MUSCULOSKELETAL: Extremities without clubbing, cyanosis, or edema. No obvious deformities. NEUROLOGICAL: Awake and alert. No obvious cranial nerve deficits. Motor grossly within normal limits. Five out of 5 muscle strength in the arms and legs. No pronator drift. No limb ataxia. DTR's 2+ and symmetric bilaterally. Sensory exam grossly intact. Normal speech. PSYCHIATRIC: Appropriate mood and affect; insight and judgment normal. Data Data Last Documented VS Vital Signs Date Time Temp Pulse Resp B/P Pulse Ox O2 Delivery O2 Flow Rate FiO2 11/08/16 20:12 79 18 100/62 97 Room Air 11/08/16 19:30 98.1 Orders Electrocardiogram (11/08/16 19:40) Basic Metabolic Panel (Bmp) (11/08/16 19:40) Complete Blood Count With Diff (11/08/16 19:40) Magnesium (Mg) (11/08/16 19:40) Ct Brain W/O Iv Contrast(Rout) (11/08/16 19:40) Ecg Monitoring (11/08/16 19:40) Iv Access Insert/Monitor (11/08/16 19:40) Oximetry (11/08/16 19:40) Sodium Chloride 0.9% Flush (Ns Flush) (11/08/16 19:45) Orthostatic Vital Signs (11/08/16 19:40) Alcohol (Ethanol) (11/08/16 19:40) Drug Screen, Random Urine (11/08/16 19:40) Phenytoin (Dilantin) (11/08/16 19:40) Labs Laboratory Tests Test 11/08/16 11/08/16 19:40 20:10 White Blood Count 9.1 TH/MM3 Red Blood Count 5.22 MIL/MM3 Hemoglobin 15.7 GM/DL Hematocrit 47.5 % Mean Corpuscular Volume 91.0 FL Mean Corpuscular Hemoglobin 30.1 PG Mean Corpuscular Hemoglobin 33.1 % Concent Red Cell Distribution Width 13.6 % Platelet Count 190 TH/MM3 Mean Platelet Volume 7.9 FL Neutrophils (%) (Auto) 50.3 % Lymphocytes (%) (Auto) 39.6 % Monocytes (%) (Auto) 6.3 % Eosinophils (%) (Auto) 2.9 % Basophils (%) (Auto) 0.9 % Neutrophils # (Auto) 4.5 TH/MM3 Lymphocytes # (Auto) 3.6 TH/MM3 Monocytes # (Auto) 0.6 TH/MM3 Eosinophils # (Auto) 0.3 TH/MM3 Basophils # (Auto) 0.1 TH/MM3 CBC Comment DIFF FINAL Differential Comment Sodium Level 139 MEQ/L Potassium Level 3.5 MEQ/L Chloride Level 106 MEQ/L Carbon Dioxide Level 24.2 MEQ/L Anion Gap 9 MEQ/L Blood Urea Nitrogen 9 MG/DL Creatinine 0.91 MG/DL Estimat Glomerular Filtration 92 ML/MIN Rate Random Glucose 104 MG/DL Calcium Level 8.3 MG/DL Magnesium Level 2.3 MG/DL Phenytoin (Dilantin) Level LESS THAN 0.4 MCG/ML Ethyl Alcohol Level 164 MG/DL Urine Barbiturates Screen NEG Urine Amphetamines Screen NEG Urine Benzodiazepines Screen NEG Urine Cocaine Screen NEG Urine Cannabinoids Screen NEG MDM Medical Decision Making Medical Screen Exam Complete: Yes Emergency Medical Condition: Yes Medical Record Reviewed: Yes Interpretation(s) alcohol: 164, elevated UDS: negative EKG normal sinus rhythm rate [address] elevation or injury pattern, right ventricular conduction delay; no change from 09/[address] 11/08/161939 Signed Impressions: Service Date/Time: Tuesday, November 08, 2016 19:56 - CONCLUSION: 1. No acute intracranial abnormalities. Small scalp nodule near the vertex on the left Grayson Morris MD CBC & BMP Diagram 11/08/16 19:40 Vital Signs Date Time Temp Pulse Resp B/P Pulse Ox O2 Delivery O2 Flow Rate FiO2 11/08/16 20:12 79 18 100/62 97 Room Air 11/08/16 20:08 87 18 103/67 85 18 100/59 88 18 101/53 11/08/16 19:56 87 18 97 Room Air 11/08/16 19:49 11/08/16 19:30 98.1 95 16 117/63 96 Room Air Differential Diagnosis Dizziness, minor closed head injury, ICH, skull fracture, arrhythmia, electrolyte disturbance, dehydration, alcohol use, substance ingestion, medication toxicity, seizure Narrative Course Patient placed on band aid machine operator IV access obtained orthostatic measurements ordered EKG performed which reveals no acute injury pattern CT brain noncontrast reveals no acute process Dilantin level is subtherapeutic at less than 0.4; patient reports he has not taken dilantin or any antiepileptic agent for 2 years and was cleared by neurology to drive Serum alcohol level elevated patient encouraged to not drink alcohol with history of seizure disorder; referred to neurology and [facility] to help with outpatient alcohol detox program; patient reports that he has plenty of his Dilantin prescription he just has not been taking it on a regular basis. Diagnosis Primary Impression: Dizziness Additional Impressions: Minor closed head injury Scalp cyst Referrals: [facility] call for appointment Trimming Cutter Machine as needed Primary Care Physician call for appointment [facility] day Patient Instructions: General Instructions Additional Instructions: Follow-up with primary care provider May follow-up with walnut dehydrator operator regarding scalp cyst Continue chronic medications as presently prescribed Increase fluid hydration Follow head injury precautions 24 hours No work times one day Return to the emergency department for any concerns or change in condition Med/Other Pt SpecificInfo: Prescription(s) given, No Change to Meds Disposition: 01 DISCHARGE HOME Condition: Stable Brenda Couch MD Nov 08, 2016 19:46
[2016-11-08 19:53] LABS: AUTOMATED NEUTROPHIL # 4.5 TH/MM3 (1.8-7.7); BASOPHIL # 0.1 TH/MM3 (0-0.2); BASOPHIL % 0.9 % (0.0-2.0); EOSINOPHIL # 0.3 TH/MM3 (0-0.4); EOSINOPHIL % 2.9 % (0.0-4.0); HEMATOCRIT 47.5 % (39.0-51.0); LYMPH % 39.6 % (9.0-44.0); LYMPHOCYTE # 3.6 TH/MM3 (1.0-4.8); MEAN CORPUSCULAR HEMOGLOBIN 30.1 PG (27.0-34.0); MEAN CORPUSCULAR HGB CONC 33.1 % (32.0-36.0); MONO % 6.3 % (0.0-8.0); NEUT % 50.3 % (16.0-70.0); PLATELET COUNT 190 TH/MM3 (150-450); RED BLOOD COUNT 5.22 MIL/MM3 (4.50-5.90); RED CELL DISTRIBUTION WIDTH 13.6 % (11.6-17.2); WHITE BLOOD COUNT 9.1 TH/MM3 (4.0-11.0)
[2016-11-08 20:02] LABS: CHLORIDE 106 MEQ/L (98-107); HEMO FLAGS DIFF FINAL; POTASSIUM 3.5 MEQ/L (3.5-5.1); SODIUM (NA) 139 MEQ/L (136-145)
[2016-11-08 20:06] LABS: ANION GAP 9 MEQ/L (5-15); BICARBONATE 24.2 MEQ/L (21.0-32.0); MAGNESIUM 2.3 MG/DL (1.5-2.5)
[2016-11-08 20:07] LABS: BLOOD UREA NITROGEN 9 MG/DL (7-18)
[2016-11-08 20:08] VITALS: BP_SYST 100; BP_SYST 101; BP_SYST 103; BP_DIAS 53; BP_DIAS 59; BP_DIAS 67; RESP 18
[2016-11-08 20:10] LABS: GLOMERULAR FILTRATION RATE 92 ML/MIN (>89)
[2016-11-08 20:12] VITALS: BP 100/62; PULSE 79; RESP 18; O2SAT 97
--- NOTE | 2016-11-08 20:14 | RADRPT ---
EXAM DATE/TIME: 11/08/2016 19:56 [facility] COMPARISON: No previous studies available for comparison. INDICATIONS : Dizziness. Cephalgia. Lump on top of head. RADIATION DOSE: 56.78 CTDIvol (mGy) MEDICAL HISTORY : None SURGICAL HISTORY : None. ENCOUNTER: Initial ACUITY: 1 week PAIN SCALE: 5/10 LOCATION: cranial superior TECHNIQUE: Multiple contiguous axial images were obtained of the head. Using automated exposure control and adj ustment of the mA and/or kV according to patient size, radiation dose was kept as low as reasonably a chievable to obtain optimal diagnostic quality images. DICOM format image data is available electro nically for review and comparison. FINDINGS: CEREBRUM: The ventricles are normal for age. No evidence of midline shift, mass lesion, hemorrhage or acute in farction. No extra-axial fluid collections are seen. POSTERIOR FOSSA: The cerebellum and brainstem are intact. The 4th ventricle is midline. The cerebellopontine angle i s unremarkable. EXTRACRANIAL: The visualized portion of the orbits is intact. SKULL: The calvaria is intact. No evidence of skull fracture. CONCLUSION: 1. No acute intracranial abnormalities. Small scalp nodule near the vertex on the left Grayson Morris MD on November 08, 2016 at 20:11 Board Certified Radiologist. This report was verified electronically.
[2016-11-08 20:27] LABS: AMPHETAMINE, URINE NEG (NEG); BARBITURATES, URINE NEG (NEG); COCAINE, URINE NEG (NEG)
[2016-11-08] MEDS ORDERED: SODIUM CHLOR 0.9% 1000 ML INJ 1,000 ML IV ONE (20:45)
[2016-11-08 21:08] VITALS: BP 103/75
--- NOTE | 2016-11-09 15:40 | EKG ---
Date Performed: 11/08/2016 Time Performed: 19:50:51 PTAGE: 40 years EKG: Sinus rhythm POSSIBLE RIGHT VENTRICULAR CONDUCTION DELAY BORDERLINE ECG PREVIOUS TRACING : 09/26/2016 16.47 DOCTOR: Yaquelin Hughes Interpretating Date/Time 11/09/2016 15:37:46
== END 2016-11-08 21:21 | disposition home or self-care (01) ==
LOC: PHED 19:21
DX: S09.90XA Unspecified injury of head, initial encounter (principal); R22.0 Localized swelling, mass and lump, head; R42 Dizziness and giddiness; F17.200 Nicotine dependence, unspecified, uncomplicated; W20.8XXA Other cause of strike by thrown, projected or falling object, initial encounter; Y93.H3 Activity, building and construction; Z79.899 Other long term (current) drug therapy
CPT/HCPCS: 70450; 80048; 80185; 80307; 83735; 85025; 93005; 99285; J7030

== ENCOUNTER 2017-02-14 18:41 | Emergency (ER) | payer SELFPAY ==
[~2017-02-14] VITALS: Ht 170.2 cm; Wt 68.0 kg
[~2017-02-14 18:41] MED LIST changes: +CYCL10TA PO; -CYCL1TAB29 PO
[2017-02-14 18:45] VITALS: BP 134/74; PULSE 82; RESP 16; TEMP 97.6; O2SAT 96
[2017-02-14] MEDS ORDERED: PENI500T PO (18:50)
[2017-02-14] MEDS ORDERED: IBUP1TAB7 PO (18:50)
--- NOTE | 2017-02-14 18:53 | PD ---
HPI Chief Complaint: Oral / Dental Pain or Problem Time Seen by Provider: 18:50 Travel History International Travel<30 days: No Contact w/Intl Traveler<30days: No Traveled to known affect area: No History of Present Illness HPI 41-year-old male here with dental pain. Symptom onset 2 days ago. Pain is throbbing, constant, worse with chewing, no alleviating factors. Denies fevers , chills. No other complaints. 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) Endocrine: No Gastrointestinal Disorders: No Genitourinary: No Immune Disorder: No Implanted Vascular Access Dvce: No Musculoskeletal: No Neurologic: Yes (severe head injury as a child) Psychiatric: No Reproductive: No Respiratory: No Immunizations Current: Yes Radiation Therapy: No Seizures: Yes Past Surgical History AICD: No Neurologic Surgery: Yes (PT STATES HE HAS HAD HEAD ALYSE) Pacemaker: No Other Surgery: Yes (HERNIA REPAIR CHILD) Social History Alcohol Use: Yes (4-6 beers/daily) Tobacco Use: Yes (1 PPD) Substance Use: Yes (marijuana) Allergies-Medications (Allergen,Severity, Reaction): Coded Allergies: *MDRO Multi-Drug Resistant Organism (Verified Adverse Reaction, Unknown, ) MRSA PCR Screen positive 12/06/14. Reported Meds & Prescriptions Reported Meds & Active Scripts Active Ibuprofen 800 Mg Tab 800 Mg PO Q6HR PRN Penicillin V Potassium 500 Mg Tab 500 Mg PO Q8H 10 Days Flexeril (Cyclobenzaprine HCl) 10 Mg Tab 10 Mg PO TID Reported Dilantin (Phenytoin Extended) 30 Mg Cap Unknown Dose PO TID Antabuse (Disulfiram) 500 Mg Tab 500 Mg PO BID Ritalin IR (Methylphenidate HCl) 5 Mg Tab Unknown Dose PO BIDAC Review of Systems General / Constitutional: No: Fever, Chills HENT: Positive: Dental Difficulties Cardiovascular: No: Chest Pain or Discomfort Respiratory: No: Cough Physical Exam Narrative GENERAL: Well-nourished male in no acute distress SKIN: Warm and dry. HEAD: Atraumatic. Normocephalic. EYES: Pupils equal and round. No scleral icterus. No injection or drainage. ENT: No nasal bleeding or discharge. Mucous membranes pink and moist. Multiple areas of dental decay. Tender to palpation to the right maxillary premolars and molars. There is some surrounding gingival erythema. NECK: Trachea midline. No JVD. CARDIOVASCULAR: Regular rate and rhythm. No murmur appreciated. RESPIRATORY: No accessory muscle use. Clear to auscultation. Breath sounds equal bilaterally. Data Data Last Documented VS Vital Signs Date Time Temp Pulse Resp B/P (MAP) Pulse Ox O2 Delivery O2 Flow Rate FiO2 02/14/17 18:45 97.6 82 16 134/74 (94) 96 Orders Orders Ed Discharge Order (02/14/17 18:51) MDM Medical Decision Making Medical Screen Exam Complete: Yes Emergency Medical Condition: Yes Medical Record Reviewed: Yes Differential Diagnosis Dental caries, pulpitis, pericarditis, periodontal abscess Narrative Course The patient is being discharged with ibuprofen, penicillin, outpatient follow- up with a dentist. Diagnosis Primary Impression: Dental caries Additional Instructions: Medication as prescribed. Follow up with a dentist for definitive therapy. Return for any emergent medical conditions. Med/Other Pt SpecificInfo: Prescription(s) given Scripts Ibuprofen (Ibuprofen) 800 Mg Tab 800 MG PO Q6HR Y for PAIN, #40 TAB 0 Refills Prov: Daniel Marsh MD 02/14/17 Penicillin V Potassium (Penicillin V Potassium) 500 Mg Tab 500 MG PO Q8H for Infection for 10 Days, #30 TAB 0 Refills Prov: Daniel Marsh MD 02/14/17 Disposition: 01 DISCHARGE HOME Condition: Stable Alvaro Morocho Feb 14, 2017 18:53
== END 2017-02-14 19:01 | disposition home or self-care (01) ==
LOC: PHEFT 18:41
DX: K02.9 Dental caries, unspecified (principal); F17.210 Nicotine dependence, cigarettes, uncomplicated
CPT/HCPCS: 99283

== ENCOUNTER 2017-07-01 09:14 | Emergency (ER) | payer SELFPAY ==
[~2017-07-01] VITALS: Ht 177.8 cm; Wt 66.0 kg
[2017-07-01 09:20] VITALS: BP 150/62; PULSE 70; RESP 16; TEMP 98.8; O2SAT 97
[2017-07-01] MEDS ORDERED: BACT800T5 PO (11:19)
--- NOTE | 2017-07-01 11:20 | PD ---
HPI Chief Complaint: Skin Problem Time Seen by Provider: 11:01 Travel History International Travel<30 days: No Contact w/Intl Traveler<30days: No Traveled to known affect area: No History of Present Illness HPI 41-year-old male arrives with pain in the left elbow for about 3 days. Associated symptoms include redness. He tried applying a hot compress which did not make a difference. No fever. Pain is worse with range of motion. Pain is worse with palpation. 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) Endocrine: No Gastrointestinal Disorders: No Genitourinary: No Immune Disorder: No Implanted Vascular Access Dvce: No Musculoskeletal: No Neurologic: Yes (severe head injury as a child) Psychiatric: No Reproductive: No Respiratory: No Immunizations Current: Yes Radiation Therapy: No Seizures: Yes Past Surgical History Surgical History: No Previous Surgery AICD: No Neurologic Surgery: Yes (PT STATES HE HAS HAD HEAD ALYSE) Pacemaker: No Other Surgery: Yes (HERNIA REPAIR CHILD) Social History Alcohol Use: Yes Tobacco Use: Yes (1 PPD) Substance Use: No (DENIES) Allergies-Medications (Allergen,Severity, Reaction): Coded Allergies: *MDRO Multi-Drug Resistant Organism (Verified Adverse Reaction, Unknown, 02/14/17) MRSA PCR Screen positive 12/06/14. Reported Meds & Prescriptions Reported Meds & Active Scripts Active Bactrim DS (Sulfamethoxazole-Trimethoprim) 800-160 Mg Tab 1 Tab PO BID Review of Systems General / Constitutional: No: Fever Eyes: No: Blurred Vision Cardiovascular: No: Diaphoresis Physical Exam Narrative GENERAL: 41-year-old male well-nourished well-developed no acute distress Vital Signs Date Time Temp Pulse Resp B/P (MAP) Pulse Ox O2 Delivery O2 Flow Rate FiO2 07/01/17 09:20 98.8 70 16 150/62 (91) 97 SKIN: There is a 2.5 cm round area of erythema overlying the ulnar aspect of the proximal forearm consistent with cellulitis. No fluctuance. HEAD: Normocephalic. EYES: No scleral icterus. No injection or drainage. MUSCULOSKELETAL: No cyanosis, or edema. Cellulitic lesion about the forearm. Data Data Last Documented VS Vital Signs Date Time Temp Pulse Resp B/P (MAP) Pulse Ox O2 Delivery O2 Flow Rate FiO2 07/01/17 09:20 98.8 70 16 150/62 (91) 97 Orders Orders Ed Discharge Order (07/01/17 11:18) MDM Medical Decision Making Medical Screen Exam Complete: Yes Emergency Medical Condition: Yes Differential Diagnosis Cellulitis, abscess, dermatitis Narrative Course Patient has cellulitis overlying the proximal forearm/left over this region. Bactrim prescription. Return precautions discussed. Diagnosis Primary Impression: Cellulitis of left elbow Referrals: Primary Care Physician PLEASE CALL YOU PRIMARY DOCTOR FOR A WOUND EVALUATION OR RETURN HERE IF PAIN AND REDNESS INCREASES OR DOES NOT IMPROVE. Med/Other Pt SpecificInfo: Prescription(s) given Scripts Sulfamethoxazole-Trimethoprim (Bactrim DS) 800-160 Mg Tab 1 TAB PO BID for Infection, #20 TAB 0 Refills Prov: David Mtz MD 07/01/17 Disposition: 01 DISCHARGE HOME Condition: Stable David Mtz MD Jul 01, 2017 11:20
== END 2017-07-01 11:38 | disposition home or self-care (01) ==
LOC: PHED 09:14 → PHEFT 11:38
DX: L03.114 Cellulitis of left upper limb (principal); F31.9 Bipolar disorder, unspecified; F41.9 Anxiety disorder, unspecified; F17.200 Nicotine dependence, unspecified, uncomplicated
CPT/HCPCS: 99283

== ENCOUNTER 2017-07-26 18:01 | Emergency (ER) | payer SELFPAY ==
[~2017-07-26] VITALS: Ht 177.8 cm; Wt 67.0 kg
[~2017-07-26 18:01] MED LIST changes: -ANTA500T PO; +BACT800T5 PO; -CYCL10TA PO; -DILA30CA PO; -METHY5 PO
[2017-07-26 18:05] VITALS: BP 115/56; PULSE 98; RESP 16; TEMP 98.5; O2SAT 97
[2017-07-26] MEDS ORDERED: PROPARACAINE HCL 0.5% OPHT SOLN 15 ML BTL RIGHT EYE ONE (18:15)
[2017-07-26] MEDS ORDERED: FLUORESCEIN SOD 1 MG STRIP LEFT EYE ONE (18:30)
[2017-07-26] MEDS ORDERED: ERYTOIN10 LEFT EYE (18:32)
[2017-07-26] MEDS ORDERED: KETO1SOL3 LEFT EYE (18:32)
--- NOTE | 2017-07-26 18:38 | PD ---
HPI Chief Complaint: Eye Problems/Injury Time Seen by Provider: 18:14 Travel History International Travel<30 days: No Contact w/Intl Traveler<30days: No Traveled to known affect area: No History of Present Illness HPI 41-year-old male presents emergency department for evaluation of left eye pain after cutting poison rola, poison oak, and wood this morning. Patient states that he was performing lawn care and believes that he got something in his eye as a result of this. Patient states that he does not have significant blurred vision. Denies headache. Does not wear contact lenses. Says eye has been irritated all day despite trying to irrigate the eye 3 times a day. Denies chronic medical issues. 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) Endocrine: No Gastrointestinal Disorders: No Genitourinary: No Immune Disorder: No Implanted Vascular Access Dvce: No Musculoskeletal: No Neurologic: Yes (severe head injury as a child) Psychiatric: No Reproductive: No Respiratory: No Immunizations Current: Yes Radiation Therapy: No Seizures: Yes Past Surgical History AICD: No Neurologic Surgery: Yes (PT STATES HE HAS HAD HEAD ALYSE) Pacemaker: No Other Surgery: Yes (HERNIA REPAIR CHILD) Social History Alcohol Use: Yes Tobacco Use: Yes (1 PPD) Substance Use: No (DENIES) Allergies-Medications (Allergen,Severity, Reaction): Coded Allergies: *MDRO Multi-Drug Resistant Organism (Verified Adverse Reaction, Unknown, ) MRSA PCR Screen positive 12/06/14. Reported Meds & Prescriptions Reported Meds & Active Scripts Active Acular Opth Drops (Ketorolac Tromethamine) 0.5% Drops 1 Drop LEFT EYE QID Erythromycin Opth Oint 5 Mg/Gm Oint 1 Applic LEFT EYE QID 10 Days Review of Systems Except as stated in HPI: all other systems reviewed are Neg Physical Exam Narrative GENERAL: Well developed, well-nourished, appears intoxicated SKIN: Focused skin assessment warm/dry. HEAD: Atraumatic. Normocephalic. EYES: Pupils equal and round. No scleral icterus. Left eye-scleral injection, increased uptake of fluorescein stain to the 12 o' clock position, negative Shirin's. No obvious foreign bodies in the eye. No ptosis, no proptosis. ENT: No nasal bleeding or discharge. Mucous membranes pink and moist. NECK: Trachea midline. No JVD. CARDIOVASCULAR: Regular rate and rhythm. No murmur appreciated. RESPIRATORY: No accessory muscle use. Clear to auscultation. Breath sounds equal bilaterally. MUSCULOSKELETAL: No obvious deformities. No clubbing. No cyanosis. No edema. NEUROLOGICAL: Awake and alert. No obvious cranial nerve deficits. Motor grossly within normal limits. Normal speech. PSYCHIATRIC: Appropriate mood and affect; insight and judgment normal. Data Data Last Documented VS Vital Signs Date Time Temp Pulse Resp B/P (MAP) Pulse Ox O2 Delivery O2 Flow Rate FiO2 07/26/17 18:05 98.5 98 16 115/56 (75) 97 Orders Orders Proparacaine 0.5% Opth Soln (Alcaine 0.5 (07/26/17 18:15) Fluorescein Strip ([id number]-[id number] A.T.) (07/26/17 18:30) Eye Irrigation (07/26/17 18:31) Ed Discharge Order (07/26/17 19:13) [facility] Medical Decision Making Medical Screen Exam Complete: Yes Emergency Medical Condition: Yes Differential Diagnosis Foreign body in the eye, corneal abrasion, corneal ulcer Narrative Course 41-year-old male presents emergency department evaluation of left eye irritation that is been present since the morning after performing lung care. Patient states he is concerned because he was dealing with some poison rola and poison oak and may have gotten some of this into his eye. Says he irrigated his eye multiple times without significant relief. The exam findings demonstrates likely corneal abrasion to the 12 o'clock position in a horizontal pattern. Shirin sign negative. PERRLA, EOMI. patient has 20/20 vision. left eye irrigated in the emergency department today. Pt says he feels much better. Patient be discharged with erythromycin ointment and Acular for discomfort. Advised he should follow-up with primary care physician and embossing clerk for further evaluation. Return to emergency department for worsening or persistent symptoms. Diagnosis Primary Impression: Cornea abrasion Qualified Codes: S05.02XA - Injury of conjunctiva and corneal abrasion without foreign body, left eye, initial encounter Referrals: Product Safety Technical Assistant Primary Care Physician Additional Instructions: Take medications as prescribed. Follow-up with the primary care physician within 2-3 days. Follow-up with an embossing clerk within 1 week. If your symptoms persist or worsen return to the emergency department. You may continue to feel as if there is an object in your eye because you have a scratch on your eye. Avoid scratching your eye to avoid further injury. Scripts Ketorolac Opth Drops (Acular Opth Drops) 0.5% Drops 1 DROP LEFT EYE QID for Pain/Inflammation, #5 ML 0 Refills Prov: David Mtz MD 07/26/17 Erythromycin Opth Oint (Erythromycin Opth Oint) 5 Mg/Gm Oint 1 APPLIC LEFT EYE QID for Infection for 10 Days, #1 TUBE 0 Refills Prov: David Mtz MD 07/26/17 Disposition: 01 DISCHARGE HOME Condition: Stable Maureen Box Jul 26, 2017 18:37
== END 2017-07-26 19:39 | disposition home or self-care (01) ==
LOC: PHEFT 18:01
DX: S05.02XA Injury of conjunctiva and corneal abrasion without foreign body, left eye, initial encounter (principal); X58.XXXA Exposure to other specified factors, initial encounter; Y93.H2 Activity, gardening and landscaping
CPT/HCPCS: 99283

== ENCOUNTER 2017-08-21 10:50 | Emergency (ER) | payer SELFPAY ==
[~2017-08-21] VITALS: Ht 177.8 cm; Wt 65.0 kg
[~2017-08-21 10:50] MED LIST changes: -BACT800T5 PO; +ERYTOIN10 LEFT EYE; +KETO1SOL3 LEFT EYE
[2017-08-21 10:54] VITALS: PULSE 72; RESP 16; TEMP 97.8; O2SAT 98
--- NOTE | 2017-08-21 12:03 | PD ---
HPI Chief Complaint: Foreign Body Time Seen by Provider: 12:00 Travel History International Travel<30 days: No Contact w/Intl Traveler<30days: No Traveled to known affect area: No History of Present Illness HPI This is a 41-year-old male here with right ear pain and sore throat 2 weeks. No fever chills. Reports the pain as constant and throbbing. No aggravating or alleviating factors. Symptom severity is moderate. Denies difficulty swallowing. 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) Endocrine: No Gastrointestinal Disorders: No Genitourinary: No Immune Disorder: No Implanted Vascular Access Dvce: No Musculoskeletal: No Neurologic: Yes (severe head injury as a child) Psychiatric: No Reproductive: No Respiratory: No Immunizations Current: Yes Radiation Therapy: No Seizures: Yes Past Surgical History AICD: No Neurologic Surgery: Yes (PT STATES HE HAS HAD HEAD ALYSE) Pacemaker: No Other Surgery: Yes (HERNIA REPAIR CHILD) Social History Alcohol Use: Yes Tobacco Use: Yes (1 PPD) Substance Use: No (DENIES) Allergies-Medications (Allergen,Severity, Reaction): Coded Allergies: *MDRO Multi-Drug Resistant Organism (Verified Adverse Reaction, Unknown, ) MRSA PCR Screen positive 12/06/14. Reported Meds & Prescriptions Reported Meds & Active Scripts Active Review of Systems Except as stated in HPI: all other systems reviewed are Neg General / Constitutional: No: Fever HENT: Positive: Sore Throat, Earache Cardiovascular: No: Chest Pain or Discomfort Respiratory: No: Shortness of Breath Gastrointestinal: No: Abdominal Pain Physical Exam Narrative GENERAL: Alert and well-appearing 41-year-old male SKIN: Warm and dry. HEAD: Normocephalic. EYES: No injection or drainage. ENT: Right TM erythema, bulging, loss of landmarks. No canal swelling or drainage. No mastoid tenderness. Mild pharyngeal erythema without tonsillar hypertrophy or exudate. Uvula is midline. Airways patent. NECK: Supple, trachea midline. Mild right-sided lymphadenopathy. CARDIOVASCULAR: Regular rate and rhythm without murmurs, gallops, or rubs. RESPIRATORY: Breath sounds equal bilaterally. No accessory muscle use. GASTROINTESTINAL: Abdomen soft, non-tender, nondistended. MUSCULOSKELETAL: No cyanosis, or edema. BACK: Nontender without obvious deformity. No CVA tenderness. Data Data Last Documented VS Vital Signs Date Time Temp Pulse Resp B/P (MAP) Pulse Ox O2 Delivery O2 Flow Rate FiO2 08/21/17 10:54 97.8 72 16 98 [facility] Medical Decision Making Medical Screen Exam Complete: Yes Emergency Medical Condition: Yes Differential Diagnosis Otitis media, otitis externa, pharyngitis, Narrative Course 41-year-old male here with right ear pain and mild sore throat for 1-2 weeks. He will be treated with amoxicillin. Instructed to follow-up with his doctor for recheck. Diagnosis Primary Impression: Otitis media Qualified Codes: H66.90 - Otitis media, unspecified, unspecified ear Referrals: Primary Care Physician Additional Instructions: Antibiotics as directed. Follow-up with your primary doctor for recheck. Return if you have new or worsening symptoms. Scripts Amoxicillin (Amoxicillin) 500 Mg Cap 500 MG PO TID for Infection for 10 Days, CAP 0 Refills Prov: Kitty Kern 08/21/17 Disposition: 01 DISCHARGE HOME Condition: Stable Kitty Kern August 21, 2017 12:03
[2017-08-21] MEDS ORDERED: AMOX500C PO (12:08)
== END 2017-08-21 12:16 | disposition home or self-care (01) ==
LOC: PHEFT 10:50
DX: H66.91 Otitis media, unspecified, right ear (principal); J02.9 Acute pharyngitis, unspecified
CPT/HCPCS: 99283